=== PATIENT | female | born 1990 | race African-American/Black ===

== ENCOUNTER 2021-04-10 23:47 | Emergency (ER) | payer SELFPAY ==
[~2021-04-10] VITALS: Ht 162.6 cm; Wt 66.0 kg
[2021-04-10 23:51] VITALS: BP 104/72
== END 2021-04-11 01:28 | disposition left against medical advice (07) ==
LOC: ER 23:47
DX: H92.03 Otalgia, bilateral (principal); F32.9 Major depressive disorder, single episode, unspecified; Z88.5 Allergy status to narcotic agent; Z88.2 Allergy status to sulfonamides
CPT/HCPCS: 99283